=== PATIENT | female | born 1950 | race Caucasian/White ===

== ENCOUNTER → 2016-03-22 | Outpatient (CLI) | payer MEDICARE, BC ==
[~2016-03-22] MED LIST: CALTTAB PO; CENTTAB PO; FLUT1INH INH; FORTEO INJ; METO25TA6 PO; UMEC1INH INH
--- NOTE | 2016-03-23 09:48 | RSPPFT ---
DATE OF PROCEDURE: 03/22/16 COMMENTS: Spirometry with FVC of 0.5 predicted 2.6, FEV1 of 0.5 predicted 1.9, FEV1/FVC ratio at 98% predicted 71%. Post-bronchodilator FVC increases to 0.67. Severe air trapping is present with RV at 2.9 predicted 1.7. DLCO is 24% of predicted. IMPRESSION: On the basis of the above, patient has a very severe obstructive lung defect with responsiveness to acutely inhaled bronchodilator.
== END ==
LOC: HRSP 09:43
PROVIDERS: ATTEND Internal Medicine Pulmonary Disease
DX: J44.9 Chronic obstructive pulmonary disease, unspecified (principal)
CPT/HCPCS: 94060; 94620; 94726; 94729

== ENCOUNTER → 2017-06-21 | Outpatient (CLI) | DX: J44.9 Chronic obstructive pulmonary disease, unspecified (principal) ==